=== PATIENT | male | born 1965 | race Caucasian/White ===

== ENCOUNTER 2017-12-23 11:34 | Emergency (ER) | payer OTHER ==
[~2017-12-23] VITALS: Ht 177.8 cm; Wt 81.6 kg
[2017-12-23] MEDS ORDERED: METHYLPREDNISOLONE SOD SUCC 125 MG/2ML VIAL IV ONE (12:00)
[2017-12-23 12:24] LABS: BASOPHILS # (AUTO) 0.1 (0.0-0.1); BASOPHILS % 0.7 % (0.0-1.0); EOSINOPHILS # (AUTO) 0.2 (0.0-0.4); EOSINOPHILS % 2.9 % (0.0-6.0); HEMATOCRIT 45.5 % (38.2-49.6); HEMOGLOBIN 15.3 g/dL (14.0-18.0); LYMPHOCYTES # (AUTO) 2.1 (1.0-3.2); LYMPHOCYTES % 25.4 % (18.0-39.1); MEAN CORPUSCULAR HEMOGLOBIN 29.8 pg (28-32); MEAN CORPUSCULAR HGB CONC 33.6 g/dL (31-35); MEAN CORPUSCULAR VOLUME 88.7 fL (81-99); MONOCYTES # (AUTO) 0.6 (0.2-0.8); MONOCYTES % 6.7 % (4.4-11.3); NEUTROPHILS # (AUTO) 5.4 (2.1-6.9); NEUTROPHILS % 63.8 % (38.7-80.0); PLATELET COUNT 327 x10e3/uL (140-360); RED BLOOD COUNT 5.13 x10e6/uL (4.3-5.7); RED CELL DISTRIBUTION WIDTH 13.5 % (11.7-14.4)
[2017-12-23 12:36] LABS: ANION GAP 13.9 mmol/L (8-16); BLOOD UREA NITROGEN 14 mg/dL (7-26); BUN/CREATININE RATIO 14 (6-25); CALCIUM 9.6 mg/dL (8.4-10.2); CARBON DIOXIDE 25 mmol/L (22-29); CHLORIDE 105 mmol/L (98-107); CREATININE, SERUM 0.97 mg/dL (0.72-1.25); EST GLOMERULAR FILTRATION RATE > 60 ML/MIN (60-); GLUCOSE 103 mg/dL (74-118); POTASSIUM 3.9 mmol/L (3.5-5.1); SODIUM 140 mmol/L (136-145)
[2017-12-23 12:49] LABS: BILIRUBIN,URINE NEGATIVE (NEGATIVE); CLARITY,URINE CLEAR (CLEAR); COLOR,URINE YELLOW (YELLOW); KETONES,URINE NEGATIVE (NEGATIVE); LEUKOCYTE ESTERASE ,URINE NEGATIVE (NEGATIVE); NITRITE,URINE NEGATIVE (NEGATIVE); PROTEIN,URINE DIPSTICK NEGATIVE (NEGATIVE); URINE UROBILINOGEN 0.2 mg/dL (0.2 - 1)
[2017-12-23 13:02] VITALS: BP 126/81
== END 2017-12-23 13:15 | disposition home or self-care (01) ==
LOC: ER 11:34
DX: G51.0 Bell's palsy (principal); R53.1 Weakness
CPT/HCPCS: 36415; 80048; 81001; 85025; 93005; 99284; J2930

== ENCOUNTER 2019-02-19 14:59 | Emergency (ER) | payer OTHER ==
[~2019-02-19] VITALS: Ht 177.8 cm; Wt 81.6 kg
--- OUTSIDE RECORDS SUMMARY | 2019-02-19 15:02 | XMS REPORT | Continuity of Care Document ---
Author Author [facility] Organization [facility] Address Unknown Phone Unavailable Care Team Providers Care Recruiting Team Lead Name Role Phone PCPNF PCP Unavailable Insurance Providers Guarantor Walter Gan Address [address] [place] [address] Email [email or web address] Payer [facility] [employer] Policy Number [id number] Subscriber's Name Walter Gan Relationship Self / Same As Patient Group Number [id number] Group Name [facility] Effective Date 18 Advance Directives Directive Response Recorded Date/Time Does the Patient have an Advance Directive? No 01/22/19 1:55am Chief Complaint and Reason for Visit Chief Complaint Dental Complaint Reason for Visit Toothache Problems Active ProblemsNo active problem information available. Past Problems Medical Problem Onset Date Status Toothache Unknown Acute Medications Current Home Medications Medication Dose Units Route Directions Days Qty Instructions Start Date Amoxicillin 250 Mg Capsule 500 Mg Oral Every 12 Hours 10 Days 40 Capsule 01/22/19 Tramadol Hcl (Ultram) 50 Mg Tab 50 Mg Oral Every 6 Hours 20 Tablet 01/22/19 Social History Social History Problem Response Recorded Date/Time Onset Date Status Hx Tobacco Use Yes 01/22/2019 2:14am Not Applicable Not Applicable Smoking Status Start Date Stop Date Current Every Day Smoker Hospital Discharge Instructions No hospital discharge instruction information available. Plan of Care Discharge Date 01/22/19 2:25am Disposition HOME, SELF-CARE 01 Condition at Discharge Stable Instructions/Education Provided Dental Pain (DC) Forms Provided Procedures & Tests Performed Work/School Release Prescriptions See Medication Section Referrals PCP NOT FOUND Note: Additional Instructions/Education If you develop severe swelling of the face, difficulty opening her mouth completely or any other concerning symptoms please return immediately emergency room otherwise was make sure to call dentist as soon as possible. If you develop worsening symptoms, high fever, severe pain or other concerning symptoms please make sure to return immediately to the emergency room for reevaluation, otherwise please make sure to follow-up with a primary care doctor as soon as possible. The examination and treatment that you have received has been on an emergency basis only and is not intended as an effort to provide complete medical care. It is impossible to recognize and treat all elements of an illness or injury in a single ER visit, for this reason it is very important to follow up with a primary care doctor. Thank you for allowing us to provide emergent medical care to you. We consider it a privilege to have served you during your illness or injury. If you have received a prescription, please fill it TODAY and follow the instructions carefully. For list of local primary care providers please see below: [facility] Address: [address] [place] [address] Appointments: [email or web address] Address: [address] [place] [address] Appointments: [email or web address] Address: [address] [place] [address] Functional Status Query Response Date Recorded Onset Within the Last 7 Days No Problem Identified January 22, 2019 1:50am Allergies, Adverse Reactions, Alerts No known allergies. Immunizations Query Response on File Recorded Date/Time HX of Pneumococcal Vaccine No 01/22/19 1:50am HX of Influenza Vaccine No 01/22/19 1:50am Tetanus Status Unknown 01/22/19 2:14am Vital Signs Acute Vital Signs Vital Response Date/Time Temperature (Fahrenheit) 98.1 degrees F (97.6 - 99.5) 01/22/2019 2:38am Pulse Rate (adult) 81 bpm (60 - 100) 01/22/2019 1:48am Pulse Rate 81 bpm 01/22/2019 2:38am Respiratory Rate 18 breaths per minute (12 - 24) 01/22/2019 1:48am Respiratory Rate 18 breaths per minute 01/22/2019 2:38am Blood Pressure Systolic 145 mm Hg (100 - 140) 01/22/2019 1:48am Blood Pressure Systolic 145 mm Hg 01/22/2019 2:38am Blood Pressure Diastolic 91 mm Hg (60 - 90) 01/22/2019 1:48am Blood Pressure Diastolic 91 mm Hg 01/22/2019 2:38am Height 5 ft 10 in 01/22/2019 1:48am Weight 200 lb 01/22/2019 1:48am Body Mass Index 28.7 kg/m^2 01/22/2019 1:48am Results No relevant diagnostic test, laboratory data and/or discharge summary informatio n available. Procedures No procedure information available. Encounters Encounter Location Arrival/Admit Date Discharge/Depart Date Attending Provider Departed Emergency Room [facility] 01/22/19 1:37am 01/22/19 2:25am ANSON MCLEOD MD Recent Diagnosis
--- OUTSIDE RECORDS SUMMARY | 2019-02-19 15:02 | XMS REPORT | Summary of Care ---
Author Author Loreta Levy LVN Organization Unknown Address [facility] Phone Unavailable Care Team Providers Care Complaint Adjuster Name Role Phone Loreta Levy LVN Unavailable Unavailable TOMASA LOVE DE, ASHIA Unavailable Unavailable PARISH Neves, FRIEDA Unavailable Unavailable MARLO LINDSAY DE, FIFI Peng Unavailable Unavailable Unavailable Unavailable Functional Status Name Dates Details Functional status health issues are not documented Status: Name Dates Details Cognitive status health issues are not documented Status: Problems Name Dates Details Pinched nerve in shoulder (354.8, G56.80) Status: Active Headache (784.0, R51) Status: Active Neck pain (723.1, M54.2) Status: Active 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, 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 Facial weakness (781.94, R29.810) Status: Active Blood pressure elevated without history of HTN (796.2, R03.0) Status: Active Impaired fasting glucose (790.21, R73.01) Status: Active Pain of right upper extremity (729.5, M79.601) Status: Active Psoriasis (696.1, L40.9) Status: Active Vaccination refused by patient (V64.06, Z28.21) Status: Active Medications Name Dates Details Tylenol CAPS PRN Active Methotrexate Sodium 2.5 MG Oral Tablet * Refills: 0 * Start : 24-Dec-2017 Active Folic Acid 1 MG Oral Tablet * Refills: 0 * Start : 24-Dec-2017 Active Allergies and Adverse Reactions Name Dates Details No Known Drug Allergies (Allergy) Status: Active Past Medical History Name Dates Details History of Hematuria, microscopic (599.72, R31.29) Status: Resolved Procedures Procedure Dates Details Procedures not documented Immunization Name Dates Details Immunizations not documented Family History Name Dates Details Family history of diabetes mellitus (V18.0, Z83.3) Status: Active Name Dates Details Family history of diabetes mellitus (V18.0, Z83.3) Status: Active Family history of malignant neoplasm (V16.9, Z80.9) Status: Active Family history of myocardial infarction (V17.3, Z82.49) Status: Active Social History Name Dates Details - Status: Name Dates Details Current every day smoker Vital Signs Date Test Result Details :47 Physical Findings 6 Status: Comments: PHQ-9 Adult Depression Screening :08 BP Systolic 136 mm[Hg] Status: Comments: Location: LUE; Position: Sitting BP Diastolic 92 mm[Hg] Status: Comments: Location: LUE; Position: Sitting Height 70.5 in Status: Weight 202 lb Status: Body Mass Index Calculated 28.57 kg/m2 Status: Body Surface Area Calculated 2.11 m2 Status: Temperature 97.9 f Status: Comments: Method: Temporal Heart Rate 89 /min Status: Respiration Rate 16 /min Status: Results Date Description Value Details :45 [QLH] LIPID PANEL CHOLESTEROL, TOTAL 182 mg/dl (Normal) Range: <200 HDL CHOLESTEROL 35 mg/dl (Below low threshold) Range: >40 TRIGLYCERIDES 107 mg/dl (Normal) Range: <150 LDL-CHOLESTEROL 126 {MG/DL__CAL} (Above high threshold) Comments: Reference range: <100 Desirable range <100 mg/dL for primary prevention; <70 mg/dL for patients with CHD or diabetic patients with > or=2 CHD risk factors. LDL-C is now calculated using the Arsen-Isabela calculation, which is a validated novel method providing better accuracy than the Friedewald equation in the estimation of LDL-C. Arsen HUERTA et al. PATY. 2013;310(19): 1140-5197 (http:/ /education.ApplyKit.com/faq/PJD139) CHOL/HDLC RATIO 5.2 {CALC} (Above high threshold) Range: <5.0 NON HDL CHOLESTEROL 147 {MG/DL__CAL} (Above high threshold) Range: <130 Comments: For patients with diabetes plus 1 major ASCVD risk factor, treating to a non-HDL-C goal of <100 mg/dL (LDL-C of <70 mg/dL) is considered a therapeutic option. :45 [QLH] CMP W/EGFR GLUCOSE 94 mg/dl (Normal) Range: 65-99 Comments: Fasting reference interval UREA NITROGEN (BUN) 16 mg/dl (Normal) Range: 7-25 CREATININE 0.94 mg/dl (Normal) Range: 0.70-1.33 Comments: For patients >49 years of age, the reference limitfor Creatinine is approximately 13% higher for peopleidentified as -Guaman[place]. eGFR NON- 94 {ML/MIN/1.7} (Normal) Range: > OR=60 eGFR 109 {ML/MIN/1.7} (Normal) Range: > OR=60 BUN/CREATININE RATIO NOT APPLICABLE {CALC} Range: 6-22 SODIUM 142 mmol/L (Normal) Range: 135-146 POTASSIUM 4.8 mmol/L (Normal) Range: 3.5-5.3 CHLORIDE 105 mmol/L (Normal) Range: 98-110 CARBON DIOXIDE 29 mmol/L (Normal) Range: 20-32 CALCIUM 9.7 mg/dl (Normal) Range: 8.6-10.3 PROTEIN, TOTAL 7.5 g/dl (Normal) Range: 6.1-8.1 ALBUMIN 4.7 g/dl (Normal) Range: 3.6-5.1 GLOBULIN 2.8 {G/DL__CALC} (Normal) Range: 1.9-3.7 ALBUMIN/GLOBULIN RATIO 1.7 {CALC} (Normal) Range: 1.0-2.5 BILIRUBIN, TOTAL 0.5 mg/dl (Normal) Range: 0.2-1.2 ALKALINE PHSPHATASE 68 u/l (Normal) Range: 40-115 AST 17 u/l (Normal) Range: 10-35 ALT 25 u/l (Normal) Range: 9-46 34-Equ-60928:45 [[facility]] TSH, 3RD GENERATION W/REFLEX TO FT4 Comments: REPORT COMMENT:FASTING:YES TSH, 3RD GENERATION W/REFLEX TO FT4 1.96 {MIU/L} (Normal) Range: 0.40-4.50 Plan of Care Name Dates Details Planned Observations Planned Goals not documented Planned Encounters Appointment; DARCY HANLEY P.A. On: 16-Sep-2018 7:45 Instructions Name Dates Details Instructions not documented Encounters Appointment; DARCY HANLEY P.A. Encounter Diagnosis: Problem not documented On: 24-Dec-2017 14:30 Appointment; DARCY HANLEY P.A. Encounter Diagnosis: Problem not documented On: 31-Dec-2017 9:15 Appointment; DARCY HANLEY P.A. Encounter Diagnosis: Problem not documented On: 29-Jan-2018 9:15 Appointment; DARCY HANLEY P.A. Encounter Diagnosis: Problem not documented On: 12-Aug-2018 8:15
--- OUTSIDE RECORDS SUMMARY | 2019-02-19 15:02 | XMS REPORT | Continuity of Care Document ---
Author Author [facility] Address Unknown Phone Unavailable Care Team Providers Care Business Data Analyst Name Role Phone [employer] Unavailable Unavailable Problems No Data Provided for This Section Medications No Data Provided for This Section Allergies, Adverse Reactions, Alerts No Known Medication Allergies Immunizations No Data Provided for This Section Results Order Name Results Value Reference Range Date Interpretation Comments Source Automated urine sediment leukocyte count by microscopy (number/high power field) Automated urine sediment leukocyte count by microscopy (number/high power field) NONE 0 - 5 12/23/2017 [facility] Bacteria detection in urine sediment by light microscopy Bacteria detection in urine sediment by light microscopy NONE NONE 12/23/2017 [facility] Epithelial cells detection in urine sediment by light microscopy Epithelial cells detection in urine sediment by light microscopy NONE NONE 12/23/2017 [facility] Erythrocytes detection in urine sediment by light microscopy Erythrocytes detection in urine sediment by light microscopy NONE 0 - 5 12/23/2017 [facility] Specific gravity of Urine by Test strip Specific gravity of Urine by Test strip 1.010 1.010 - 1.025 12/23/2017 [facility] Urine clarity Urine clarity CLEAR CLEAR 12/23/2017 [facility] Urine color determination Urine color determination YELLOW YELLOW 12/23/2017 [facility] Urine erythrocytes detection Urine erythrocytes detection TRACE NEGATIVE 12/23/2017 [facility] Urine glucose detection Urine glucose detection NEGATIVE NEGATIVE 12/23/2017 [facility] Urine ketones detection by automated test strip Urine ketones detection by automated test strip NEGATIVE NEGATIVE 12/23/2017 [facility] Urine leukocyte esterase detection by dipstick Urine leukocyte esterase detection by dipstick NEGATIVE NEGATIVE 12/23/2017 [facility] Urine nitrite detection Urine nitrite detection NEGATIVE NEGATIVE 12/23/2017 [facility] Urine pH measurement by automated test strip Urine pH measurement by automated test strip 6 5 - 7 12/23/2017 [facility] Urine protein measurement by test strip (mass/volume) Urine protein measurement by test strip (mass/volume) NEGATIVE NEGATIVE 12/23/2017 [facility] Urine total bilirubin measurement (mass/volume) Urine total bilirubin measurement (mass/volume) NEGATIVE NEGATIVE 12/23/2017 [facility] Urine urobilinogen measurement by test strip (mass/volume) Urine urobilinogen measurement by test strip (mass/volume) 0.2 0.2 - 1 12/23/2017 [facility] Automated blood basophil count (count/volume) Automated blood basophil count (count/volume) 0.1 0.0 - 0.1 12/23/2017 [facility] Automated blood basophil count as percentage of total leukocytes Automated blood basophil count as percentage of total leukocytes 0.7 0.0 - 1.0 12/23/2017 [facility] Automated blood eosinophil count Automated blood eosinophil count 0.2 0.0 - 0.4 12/23/2017 [facility] Automated blood eosinophil count as percentage of total leukocytes Automated blood eosinophil count as percentage of total leukocytes 2.9 0.0 - 6.0 12/23/2017 [facility] Automated blood hematocrit (volume fraction) Automated blood hematocrit (volume fraction) 45.5 38.2 - 49.6 12/23/2017 [facility] Automated blood lymphocyte count as percentage ot total leukocytes Automated blood lymphocyte count as percentage ot total leukocytes 25.4 18.0 - 39.1 12/23/2017 [facility] Automated blood monocyte count as percentage of total leukocytes Automated blood monocyte count as percentage of total leukocytes 6.7 4.4 - 11.3 12/23/2017 [facility] Automated blood neutrophil count Automated blood neutrophil count 5.4 2.1 - 6.9 12/23/2017 [facility] Automated blood platelet count (count/volume) Automated blood platelet count (count/volume) 327 140 - 360 12/23/2017 [facility] Automated blood segmented neutrophil count as percentage of total leukocytes Automated blood segmented neutrophil count as percentage of total leukocytes 63.8 38.7 - 80.0 12/23/2017 [facility] Automated erythrocyte mean corpuscular hemoglobin (mass per erythrocyte) Automated erythrocyte mean corpuscular hemoglobin (mass per erythrocyte) 29.8 28 - 32 12/23/2017 [facility] Automated erythrocyte mean corpuscular hemoglobin concentration measurement (mass/volume) Automated erythrocyte mean corpuscular hemoglobin concentration measurement (mass/volume) 33.6 31 - 35 12/23/2017 [facility] Automated erythrocyte mean corpuscular volume Automated erythrocyte mean corpuscular volume 88.7 81 - 99 12/23/2017 [facility] Blood erythrocytes automated count (number/volume) Blood erythrocytes automated count (number/volume) 5.13 4.3 - 5.7 12/23/2017 [facility] Blood hemoglobin measurement (moles/volume) Blood hemoglobin measurement (moles/volume) 15.3 14.0 - 18.0 12/23/2017 [facility] Blood leukocytes automated count (number/volume) Blood leukocytes automated count (number/volume) 8.42 4.8 - 10.8 12/23/2017 [facility] Blood lymphocytes count (number/volume) Blood lymphocytes count (number/volume) 2.1 1.0 - 3.2 12/23/2017 [facility] Blood monocytes automated count (number/volume) Blood monocytes automated count (number/volume) 0.6 0.2 - 0.8 12/23/2017 [facility] Estimated glomerular filtration rate (GFR) determination Estimated glomerular filtration rate (GFR) determination >60 60 12/23/2017 [facility] Glucose measurement Glucose measurement 103 74 - 118 12/23/2017 [facility] Serum or plasma anion gap Serum or plasma anion gap 13.9 8 - 16 12/23/2017 [facility] Serum or plasma calcium measurement (mass/volume) Serum or plasma calcium measurement (mass/volume) 9.6 8.4 - 10.2 12/23/2017 [facility] Serum or plasma carbon dioxide, total measurement (moles/volume) Serum or plasma carbon dioxide, total measurement (moles/volume) 25 22 - 29 12/23/2017 [facility] Serum or plasma chloride measurement (moles/volume) Serum or plasma chloride measurement (moles/volume) 105 98 - 107 12/23/2017 [facility] Serum or plasma creatinine measurement (mass/volume) Serum or plasma creatinine measurement (mass/volume) 0.97 0.72 - 1.25 12/23/2017 [facility] Serum or plasma potassium measurement (moles/volume) Serum or plasma potassium measurement (moles/volume) 3.9 3.5 - 5.1 12/23/2017 [facility] Serum or plasma sodium measurement (moles/volume) Serum or plasma sodium measurement (moles/volume) 140 136 - 145 12/23/2017 [facility] Serum or plasma urea nitrogen measurement (mass/volume) Serum or plasma urea nitrogen measurement (mass/volume) 14 7 - 26 12/23/2017 [facility] Serum or plasma urea nitrogen/creatinine mass ratio Serum or plasma urea nitrogen/creatinine mass ratio 14 6 - 25 12/23/2017 [facility] Red Cell Distribution Width 13.5 11.7 - 14.4 12/23/2017 [facility] IM GRANULOCYTES % 0.5 0.0 - 1.0 12/23/2017 [facility] Absolute Immature Granulocyte (auto 0.04 0 - 0.1 12/23/2017 [facility] Pathology Reports No Data Provided for This Section Diagnostic Reports No Data Provided for This Section Consultation Notes No Data Provided for This Section Discharge Summaries No Data Provided for This Section History and Physicals No Data Provided for This Section Vital Signs No Data Provided for This Section Encounters Location Location Details Encounter Type Encounter Number Reason For Visit Attending Provider ADM Date DC Date Status Source Departed Emergency Room [id number] KARMA BURLESON MD 12/23/2017 12/23/2017 [facility] Procedures No Data Provided for This Section Assessment and Plan No Data Provided for This Section Plan of Care Plan of Care Date Source Discharge Date 12/23/17 1:15pm Disposition HOME, SELF-CARE Condition at Discharge Stable Instructions/Education Provided Mcclelland's Palsy Forms Provided Work/School Excuse Prescriptions See Medication Section Referrals XANDER DESOUZA M.D. Address: [address] [place] [address] Additional Instructions/Education FOLLOW UP WITH PRIMARY CARE DOCTOR. TAKE MEDICATION PRESCRIBED. 12/23/2017 [facility] Social History Social History Date Source Social History Problem Response Recorded Date/Time Onset Date Status Hx Psychiatric Problems No 06/20/2013 8:00pm Not Applicable Not Applicable Hx Eating Disorder Yes 06/20/2013 8:00pm Not Applicable Not Applicable Hx Substance Use Disorder Yes 06/20/2013 8:00pm Not Applicable Not Applicable Hx Depression Yes 06/20/2013 8:00pm Not Applicable Not Applicable Hx Alcohol Use No 06/20/2013 8:00pm Not Applicable Not Applicable Hx Substance Use Treatment No 06/20/2013 8:00pm Not Applicable Not Applicable Hx Physical Abuse No 06/20/2013 8:00pm Not Applicable Not Applicable Smoking Status Start Date Stop Date Current every day smoker 12/23/2017 [facility] Family History No Data Provided for This Section Advance Directives Order Name Results Value Date Source Advance Directives Advance Directives Directive Response Recorded Date/Time Does the patient have an advance directive? No 06/20/13 8:00pm If yes, is advance directive on file with [facility]? No 06/20/13 8:00pm If not on file with [facility] will patient provide a copy? No 06/20/13 8:00pm Do you have a Directive to Physician? No 12/23/17 12:08pm Do you have a Medical Power of Automotive Services Manager? No 12/23/17 12:08pm Do you have an out of hospital Do Not Resuscitate Order? No 12/23/17 12:08pm Do you have any special needs we should be aware of? No 12/23/17 12:08pm Do you have a support person here with you today? Yes 12/23/17 12:08pm Did patient receive Notice of Privacy Practices? Yes 12/23/17 12:08pm Did patient receive patient rights and responsibilities? Yes 12/23/17 12:08pm 12/23/2017 [facility] Functional Status No Data Provided for This Section
[2019-02-19] MEDS: SODIUM CHLORIDE 0.9% 1000ML 1,000 ML IV STA (15:49)
[2019-02-19] MEDS: ASPIRIN 81 MG CHEW TAB PO ONE (15:49)
[2019-02-19] MEDS: MECLIZINE HCL 12.5 MG TAB PO ONE (15:49)
--- NOTE | 2019-02-19 15:49 | NUR ---
PATIENT TO ROOM 4
--- NOTE | 2019-02-19 15:55 | Diagnostic Imaging Report ---
History: Dizziness Comparison studies: None Technique: Axial images were obtained from the skull base to the vertex. Coronal and sagittal reconstructions obtained from the axial data. Dose modulation, iterative reconstruction, and/or weight based adjustment of the mA/kV was utilized to reduce the radiation dose to as low as reasonably achievable. Findings: Scalp/skull: No abnormalities. No fractures, blastic or lytic lesions. Extra-axial spaces: No masses. No fluid collections. Brain sulci: Appropriate for age. Ventricles: Normal in size and configuration. No hydrocephalus. Parenchyma: No abnormal densities. No masses, hemorrhage, acute or chronic cortical vascular insults. Sellar/suprasellar region: No abnormalities Craniocervical junction: Patent foramen magnum. No Chiari one malformation. IMPRESSION: No abnormalities . Signed by: DR Henry Bolton M.D. on 02/19/2019 3:52 PM
--- NOTE | 2019-02-19 16:07 | Diagnostic Imaging Report ---
EXAMINATION: CHEST SINGLE (PORTABLE) INDICATION: Dizziness COMPARISON: None FINDINGS: LINES/TUBES:None LUNGS:The lungs are well-inflated. No focal consolidation or pulmonary edema. PLEURA:No pleural effusion or pneumothorax. MEDIASTINUM:The cardiomediastinal silhouette appears normal in size and shape. BONES/SOFT TISSUES:No acute osseous injury. ABDOMEN:No free air under the diaphragm. IMPRESSION: No focal pneumonia or pulmonary edema. Signed by: Aisha Law MD on 02/19/2019 4:04 PM
[2019-02-19 16:19] LABS: BASOPHILS # (AUTO) 0.1 (0.0-0.1); BASOPHILS % 0.6 % (0.0-1.0); EOSINOPHILS # (AUTO) 0.1 (0.0-0.4); EOSINOPHILS % 0.8 % (0.0-6.0); HEMATOCRIT 47.7 % (38.2-49.6); HEMOGLOBIN 15.7 g/dL (14.0-18.0); LYMPHOCYTES # (AUTO) 1.6 (1.0-3.2); LYMPHOCYTES % 13.7 % (18.0-39.1); MEAN CORPUSCULAR HEMOGLOBIN 28.9 pg (28-32); MEAN CORPUSCULAR HGB CONC 32.9 g/dL (31-35); MEAN CORPUSCULAR VOLUME 87.7 fL (81-99); MONOCYTES # (AUTO) 0.7 (0.2-0.8); MONOCYTES % 6.2 % (4.4-11.3); NEUTROPHILS % 78.3 % (38.7-80.0); PLATELET COUNT 301 x10e3/uL (140-360); RED BLOOD COUNT 5.44 x10e6/uL (4.3-5.7); RED CELL DISTRIBUTION WIDTH 12.9 % (11.7-14.4)
--- NOTE | 2019-02-19 16:25 | NUR ---
REPORT TO SHADY Poe
[2019-02-19 16:26] LABS: BILIRUBIN,URINE NEGATIVE (NEGATIVE); CLARITY,URINE CLEAR (CLEAR); COLOR,URINE YELLOW (YELLOW); KETONES,URINE NEGATIVE (NEGATIVE); LEUKOCYTE ESTERASE ,URINE NEGATIVE (NEGATIVE); NITRITE,URINE NEGATIVE (NEGATIVE); PROTEIN,URINE DIPSTICK NEGATIVE (NEGATIVE); URINE UROBILINOGEN 0.2 mg/dL (0.2 - 1)
[2019-02-19 16:37] LABS: INR 0.9; PROTHROMBIN TIME 12.6 seconds (11.9-14.5)
[2019-02-19 16:38] LABS: PARTIAL THROMBOPLASTIN TIME 26.9 seconds (23.8-35.5)
[2019-02-19 16:44] LABS: BACTERIA,URINE FEW /HPF; RBC,URINE 0-5 /HPF (0-5)
[2019-02-19 16:46] LABS: ALANINE AMINOTRANSFERASE 22 IU/L (0-55); ALBUMIN 4.2 g/dL (3.5-5.0); ALBUMIN/GLOBULIN RATIO 1.1 (0.8-2.0); ALKALINE PHOSPHATASE 73 IU/L (40-150); ANION GAP 15.6 mmol/L (8-16); BLOOD UREA NITROGEN 18 mg/dL (7-26); BUN/CREATININE RATIO 19 (6-25); CALCIUM 9.9 mg/dL (8.4-10.2); CARBON DIOXIDE 26 mmol/L (22-29); CHLORIDE 101 mmol/L (98-107); CREATINE KINASE 54 IU/L (30-200); CREATININE, SERUM 0.96 mg/dL (0.72-1.25); EST GLOMERULAR FILTRATION RATE > 60 ML/MIN (60-); GLUCOSE 99 mg/dL (74-118); POTASSIUM 3.6 mmol/L (3.5-5.1); SODIUM 139 mmol/L (136-145)
== END 2019-02-19 18:36 | disposition home or self-care (01) ==
LOC: ER 14:59
DX: R42 Dizziness and giddiness (principal); L40.9 Psoriasis, unspecified
CPT/HCPCS: 36415; 70450; 71045; 80053; 81001; 82550; 82553; 83880; 84484; 85025; 85610; 85730; 87086; 93005; 99284; J7030; J8597

== ENCOUNTER 2021-07-01 10:02 | Emergency (ER) | payer OTHER ==
[~2021-07-01] VITALS: Ht 177.8 cm; Wt 81.6 kg
== END 2021-07-01 10:42 | disposition home or self-care (01) ==
LOC: ER 10:07
DX: M25.512 Pain in left shoulder (principal); X50.1XXA Overexertion from prolonged static or awkward postures, initial encounter; Y92.008 Other place in unspecified non-institutional (private) residence as the place of occurrence of the external cause; L40.9 Psoriasis, unspecified
CPT/HCPCS: 93005; 99282